=== PATIENT | female | born 1950 | race Caucasian/White ===

== ENCOUNTER → 2023-11-24 15:12 | Outpatient (REF) | payer MEDICARE, OTHER, SELFPAY | LOC: RAD 15:12 | PROVIDERS: ATTENDING PHYSICIAN Internal Medicine Geriatric Medicine | DX: E03.9 Hypothyroidism, unspecified (principal); E78.2 Mixed hyperlipidemia; R53.83 Other fatigue; E06.3 Autoimmune thyroiditis; E55.9 Vitamin D deficiency, unspecified; I65.22 Occlusion and stenosis of left carotid artery; Z13.31 Encounter for screening for depression | CPT/HCPCS: 93880 ==

== ENCOUNTER → 2023-12-10 13:54 | Outpatient (REF) | payer MEDICARE, OTHER, SELFPAY | LOC: HWWDC 13:54 | PROVIDERS: ATTENDING PHYSICIAN Internal Medicine Geriatric Medicine | DX: Z12.31 Encounter for screening mammogram for malignant neoplasm of breast (principal) | CPT/HCPCS: 77063; 77067 ==

== ENCOUNTER → 2024-12-26 10:43 | Outpatient (REF) | payer MEDICARE, OTHER, SELFPAY | LOC: HWRAD 10:43 | PROVIDERS: ATTENDING PHYSICIAN Internal Medicine Geriatric Medicine | DX: E78.2 Mixed hyperlipidemia (principal) | CPT/HCPCS: 75571 ==

== ENCOUNTER → 2025-01-04 14:33 | Outpatient (REF) | payer MEDICARE, OTHER, SELFPAY | LOC: WDC 14:33 | PROVIDERS: ATTENDING PHYSICIAN Internal Medicine Geriatric Medicine | DX: Z12.31 Encounter for screening mammogram for malignant neoplasm of breast (principal) | CPT/HCPCS: 77063; 77067 ==